=== PATIENT | male | born 1975 | race Caucasian/White ===

== ENCOUNTER 2020-04-03 13:58 | Emergency (ER) | payer BC ==
[~2020-04-03] VITALS: Ht 182.9 cm; Wt 115.6 kg
[2020-04-03] MEDS ORDERED: DIPH,PERTUSS(ACELL),TET VAC/PF 0.5 ML SYRINGE. VAX IM ONE (14:45)
[2020-04-03] MEDS ORDERED: LIDOCAINE 1% PF 2 ML VIAL. INJ ONE (14:45)
--- NOTE | 2020-04-03 15:41 | RAD ---
EXAM: Left wrist, 3 views. HISTORY: Blunt trauma. COMPARISON: None. FINDINGS: 3 views of the left wrist are obtained. There is no fracture, dislocation or subluxation. T here is soft tissue swelling and a laceration overlying the dorsal aspect of the wrist. IMPRESSION: Soft tissue laceration and swelling overlying the dorsal aspect of the wrist. No foreign body or fracture is seen. Electronically signed by: Sonam Huerta MD (04/03/2020 3:38 PM) [id number]
--- NOTE | 2020-04-03 15:44 | ED.ADGEN ---
Past Medical History Past Medical History: No Pertinent History Past Surgical History: Other Additional Past Surgical Histo: HERNIA, Vastectomy Smoking Status: Never Smoker Alcohol Use: Occasionally General Adult EDM: Chief Complaint: LACERATION/AVULSION HPI: HPI: Patient is a 44 year old male, accompanied by his , who presents emergency department with complaints of left wrist pain and a laceration to his left dorsal wrist after a large heavy crystal vase fell on top of his hand and broke. Patient is unsure when his last tetanus shot was. He reports pain in his left wrist with range of motion. He denies any decreased sensation or movement of his fingers. The patient currently rates his pain a 4 out of 10 on the pain scale, he denies any alleviating factors, pain is worse with movement. Review of Systems: Review of Systems: Complete ROS is negative unless otherwise noted in HPI. Current Medications: Current Medications Medications (Trade) Dose Ordered Sig/Gillian Start Time Stop Time Status Last Admin Dose Admin Diphtheria/ Tetanus/Acell Pertussis (ADACEL TDap SYRINGE) 0.5 ml ONCE ONCE 04/03/20 14:45 04/03/20 15:07 DC 04/03/20 15:13 0.5 ML Lidocaine HCl (Xylocaine-Mpf 1% 2ml Vial) 6 ml 1X ONCE 04/03/20 14:45 04/03/20 15:07 DC 04/03/20 15:14 6 ML Allergies: Allergies: Allergies Coded Allergies Type Severity Reaction Last Updated Verified No Known Drug Allergies 04/03/20 No Physical Exam: PE: See Above Constitutional: Well developed, well nourished, no acute distress, non-toxic appearance. [] HENT: Normocephalic, atraumatic, bilateral external ears normal, nose normal. [] Eyes: PERRLA, EOMI, conjunctiva normal, no discharge. [] Neck: Normal range of motion, no stridor. [] Cardiovascular:Heart rate regular rhythm Lungs & Thorax: Respirations even and unlabored, no retractions, no respiratory distress Skin: Warm, dry, no erythema, no rash; 2 cm horizontal laceration to the volar aspect of the left wrist, no visible foreign body, no visible tendon injury with wound exploration, bleeding controlled bandage in place. [] Extremities: Left wrist: Distal medial tenderness to palpation without crepitus or obvious deformity, limited range of motion due to pain; left hand: Full extension/flexion of all fingers, normal sensation, no cyanosis, ROM intact, no edema. [] Neurologic: Alert and oriented X 3, no focal deficits noted. [] Psychologic: Affect normal, judgement normal, mood normal. [] Current Patient Data: Vital Signs: Vital Signs Date Time Temp Pulse Resp B/P (MAP) Pulse Ox O2 Delivery O2 Flow Rate FiO2 04/03/20 14:07 98.1 97 14 97 Room Air 98.1 EKG: EKG: [] Heart Score: Risk Factors: Risk Factors: DM, Current or recent (<one month) smoker, HTN, HLP, family history of CAD, obesity. Risk Scores: Score 0 - 3: 2.5% MACE over next 6 weeks - Discharge Home Score 4 - 6: 20.3% MACE over next 6 weeks - Admit for Clinical Observation Score 7 - 10: 72.7% MACE over next 6 weeks - Early Invasive Strategies Radiology/Procedures: Radiology/Procedures: Laceration Repair by me: Anesthesia: 1% lidocaine locally Location: Left wrist Tendon/Joint/Nerves: No injury Foreign body: None detected after copious irrigation and exploration with NS and chlorhexidine Technique: 4 simple Interrupted Sutures with 4-0 Ethilon Complexity: No subcutaneous sutures/mucosal repair/edge excision Post Closure Length: 2 cm Patient's bleeding was easily controlled in the department and there is no indication of anemia. No evidence of compartment syndrome, neurologic injury, vascular injury, open joint, tendon laceration, or foreign body. Patient is appropriate for outpatient follow up. Scar minimazation instructions given. PROCEDURE: WRIST 3V LEFT EXAM: Left wrist, 3 views. HISTORY: Blunt trauma. COMPARISON: None. FINDINGS: 3 views of the left wrist are obtained. There is no fracture, dislocation or subluxation. There is soft tissue swelling and a laceration overlying the dorsal aspect of the wrist. IMPRESSION: Soft tissue laceration and swelling overlying the dorsal aspect of the wrist. No foreign body or fracture is seen. [] Course & Med Decision Making: Course & Med Decision Making Pertinent Labs and Imaging studies reviewed. (See chart for details) [] Dragon Disclaimer: Dragon Disclaimer: This electronic medical record was generated, in whole or in part, using a voice recognition dictation system. Departure Departure Impression: Primary Impression: Laceration of left wrist without complication Additional Impressions: Acute pain of left wrist Contusion of left wrist, initial encounter Need for Tdap vaccination Disposition: 01 DC HOME SELF CARE/HOMELESS Condition: STABLE Referrals: SHAUNA ROSAS MD (PCP) Patient Instructions: Contusion, [id number], Laceration Care, Adult, [id number], Wrist Pain, [id number] Additional Instructions: Fill the prescription and take it as directed. Keep the area clean and dry. You may take Tylenol or ibuprofen as needed for pain. Keep the dressing that was placed today on for 24 hours then change the dressing twice a day and apply antibiotic ointment to the area. Follow-up with your primary care doctor, or return to the emergency room in 10-14 days to have the sutures removed, sooner if you develop signs of infection including: redness, warmth, drainage, or a fever. Scripts Cephalexin (CEPHALEXIN) 500 Mg Capsule 1 CAP PO QID for 7 Days, #28 CAP 0 Refills Prov: FLAQUITO CADENA APRN 04/03/20 Problem Qualifiers Primary Impression: Laceration of left wrist without complication Encounter type: initial encounter Qualified Codes: S61.512A - Laceration without foreign body of left wrist, initial encounter FLAQUITO CADENA APRN Apr 03, 2020 15:43
[2020-04-03] MEDS ORDERED: CEPH500C PO (15:47)
== END 2020-04-03 15:50 | disposition home or self-care (01) ==
LOC: ER 13:58
DX: S61.512A Laceration without foreign body of left wrist, initial encounter (principal); Y28.8XXA Contact with other sharp object, undetermined intent, initial encounter; Y93.89 Activity, other specified; Y92.89 Other specified places as the place of occurrence of the external cause; Y99.8 Other external cause status
CPT/HCPCS: 12001; 73110; 90471; 90715; 99283; J3490